=== PATIENT | female | born 1995 | race Caucasian/White ===

== ENCOUNTER → 2017-10-08 | Outpatient (CLI) | payer OTHER ==
[~2017-10-08] MED LIST: ACET325 PO; IBUP800 PO; Keflex500 MG PO; Norco 5-325 Ta1 EACH PO; QUET100 PO; Verotin-Gr Cap1 EACH PO
== END | disposition home or self-care (01) ==
LOC: LAB 11:21
PROVIDERS: Obstetrics & Gynecology
DX: K13.70 Unspecified lesions of oral mucosa (principal)
CPT/HCPCS: 87529

== ENCOUNTER → 2017-10-22 | Outpatient (CLI) | payer OTHER ==
[2017-10-22 18:19] LABS: Appearance, Urine Clear (Clear); Bilirubin, Urine Neg (Neg); Blood, Urine 2+ (Neg); Color, Urine Yellow (P-Yellow); Glucose Qualitative, Urine 3+ (Neg); Ketones, Urine 2+ (Neg); Leukocyte Esterase, Urine Neg (Neg); Nitrite, Urine Neg (Neg); Protein, Urine 3+ (Neg); Specific Gravity, Urine 1.015 (1.003-1.022); Urobilinogen, Urine NORM (Normal)
[2017-10-22 18:27] LABS: Bacteria Not Seen /hpf; Red Blood Cells, Urine 0-2 /hpf (0-2); Squamous Epithelial Cells Not Seen /hpf (Few); White Blood Cells, Urine Not Seen /hpf (0-5)
== END | disposition home or self-care (01) ==
LOC: LAB 12:08
PROVIDERS: Obstetrics & Gynecology
DX: R82.99 Other abnormal findings in urine (principal)
CPT/HCPCS: 81001

== ENCOUNTER → 2017-11-05 | Outpatient (CLI) | payer OTHER ==
[~2017-11-05] MED LIST changes: -ACET325 PO; -IBUP800 PO; -Verotin-Gr Cap1 EACH PO
[2017-11-05 11:49] LABS: Source, Urine Clean Catch
[2017-11-05 13:09] LABS: Appearance, Urine Clear (Clear); Bilirubin, Urine Neg (Neg); Blood, Urine 2+ (Neg); Color, Urine Yellow (P-Yellow); Glucose Qualitative, Urine Neg (Neg); Ketones, Urine Neg (Neg); Leukocyte Esterase, Urine 3+ (Neg); Nitrite, Urine Neg (Neg); Protein, Urine 2+ (Neg); Specific Gravity, Urine 1.015 (1.003-1.022); Urobilinogen, Urine NORM (Normal); pH, Urine 6.5 (5.0-8.0)
[2017-11-05 13:48] LABS: Bacteria Mod /hpf; Squamous Epithelial Cells Few /hpf (Few); White Blood Cells, Urine TNTC /hpf (0-5)
== END | disposition home or self-care (01) ==
LOC: LAB SHORT 11:26 → LAB 11:26
PROVIDERS: Obstetrics & Gynecology
DX: O99.89 Other specified diseases and conditions complicating pregnancy, childbirth and the puerperium (principal); R82.99 Other abnormal findings in urine
CPT/HCPCS: 81001; 87081; 87086; 87653

== ENCOUNTER → 2018-08-16 | Outpatient (CLI) | payer OTHER ==
[~2018-08-16] MED LIST changes: +ACET325 PO; +IBUP800 PO; +Verotin-Gr Cap1 EACH PO
== END | disposition home or self-care (01) ==
LOC: LAB SHORT 12:12 → LAB EV 12:12
DX: N39.0 Urinary tract infection, site not specified (principal)
CPT/HCPCS: 87077; 87086; 87186

== ENCOUNTER 2019-03-26 14:20 | Emergency (ER) | payer OTHER ==
[~2019-03-26] VITALS: Ht 162.6 cm; Wt 52.2 kg
[2019-03-26 15:43] LABS: BASOPHILS ABSOLUTE AUTO 0.03 K/mm3 (0.00-0.23); BASOPHILS PERCENT AUTO 1 % (0-2); EOSINOPHILS ABSOLUTE AUTO 0.03 K/mm3 (0.00-0.68); EOSINOPHILS PERCENT AUTO 1 % (0-6); Hematocrit 36.5 % (33.0-51.0); Hemoglobin 12.7 g/dL (11.5-16.0); IMMATURE GRAN ABSOLUTE AUTO 0.01 K/mm3 (0.00-0.10); IMMATURE GRAN PERCENT AUTO 0 % (0-1); LYMPHOCYTES ABSOLUTE AUTO 2.25 K/mm3 (0.84-5.20); LYMPHOCYTES PERCENT AUTO 51 % (21-46); MONOCYTES ABSOLUTE AUTO 0.15 K/mm3 (0.16-1.47); MONOCYTES PERCENT AUTO 3 % (4-13); Mean Corpuscular HGB 32.2 pg (26.0-34.0); Mean Corpuscular HGB Conc 34.8 g/dL (31.5-36.5); Mean Corpuscular Volume 92 fL (80-100); Mean Platelet Volume 9.2 fL (9.1-12.4); NEUTROPHILS ABSOLUTE AUTO 1.96 K/mm3 (1.96-9.15); NEUTROPHILS PERCENT AUTO 44 % (41-73); Platelet Count 162 K/mm3 (150-400); RDW Coefficient Variation 14.5 % (11.7-14.2); RDW Standard Deviation 48.4 fL (35.1-46.3); Red Blood Cell Count 3.95 M/mm3 (3.80-5.20); White Blood Cell Count 4.43 K/mm3 (4.00-11.30)
[2019-03-26 15:45] LABS: Source, Urine Clean Catch
[2019-03-26 15:49] LABS: Bilirubin, Urine Neg (Neg); Blood, Urine Neg (Neg); Glucose Qualitative, Urine 2+ (Neg); Ketones, Urine Neg (Neg); Leukocyte Esterase, Urine Neg (Neg); Nitrite, Urine Neg (Neg); Protein, Urine Neg (Neg); Urobilinogen, Urine NORM (Normal)
[2019-03-26 15:52] LABS: Appearance, Urine Clear (Clear); Color, Urine Yellow (P-Yellow)
[2019-03-26 16:05] LABS: Alanine Aminotransfer (ALT/SGP 19 U/L (12-78); Albumin, Blood 3.7 g/dL (3.4-5.0); Albumin/Globulin Ratio 1.1 (0.8-1.8); Alk Phos 44 U/L (50-136); Anion Gap 10 mmol/L (6-16); Aspartate Aminotrans (AST/SGOT 22 U/L (12-37); Bilirubin, Total 0.4 mg/dL (0.1-1.0); Blood Urea Nitrogen 11 mg/dL (8-24); Bun/Creatinine Ratio 22.1 (12.0-20.0); CO2, Blood 20 mmol/L (21-32); Calcium, Blood 8.5 mg/dL (8.5-10.1); Chloride, Blood 108 mmol/L (98-108); Globulin, Blood 3.5 g/dL (2.2-4.0); Glomerular Filtration Rate >60 (60-); Glucose, Blood 69 mg/dL (70-99); Potassium, Blood 3.7 mmol/L (3.5-5.5); Sodium, Blood 138 mmol/L (136-145); Total Protein, Blood 7.2 g/dL (6.4-8.2)
[2019-03-26 16:20] LABS: Beta HCG, Quantitative, Serum 53994 mIU/mL (0-3)
== END 2019-03-26 16:44 | disposition home or self-care (01) ==
LOC: ER 14:20
PROVIDERS: Physician Assistant
DX: O99.89 Other specified diseases and conditions complicating pregnancy, childbirth and the puerperium (principal); R10.9 Unspecified abdominal pain; Z3A.13 13 weeks gestation of pregnancy; V49.9XXA Car occupant (driver) (passenger) injured in unspecified traffic accident, initial encounter; Z88.2 Allergy status to sulfonamides; O99.341 Other mental disorders complicating pregnancy, first trimester; F31.9 Bipolar disorder, unspecified
CPT/HCPCS: 36415; 76801; 80053; 81003; 84702; 85025; 86900; 86901; 99284-25

== ENCOUNTER → 2019-06-05 | Outpatient (CLI) | payer OTHER | END | disposition home or self-care (01) | LOC: LAB SHORT 17:24 → LAB EV 17:24 | DX: B00.9 Herpesviral infection, unspecified (principal) | CPT/HCPCS: 87529 ==

== ENCOUNTER → 2019-09-09 | Outpatient (CLI) | payer OTHER | END | disposition home or self-care (01) | LOC: LAB SHORT 15:02 → LAB 15:02 | DX: Z34.93 Encounter for supervision of normal pregnancy, unspecified, third trimester (principal) | CPT/HCPCS: 87081; 87653 ==

== ENCOUNTER 2019-09-21 04:35 | Inpatient (IN) | payer OTHER ==
[~2019-09-21] VITALS: Ht 162.6 cm; Wt 65.9 kg
[2019-09-21 05:08] LABS: BASOPHILS ABSOLUTE AUTO 0.03 K/mm3 (0.00-0.23); BASOPHILS PERCENT AUTO 1 % (0-2); EOSINOPHILS ABSOLUTE AUTO 0.04 K/mm3 (0.00-0.68); EOSINOPHILS PERCENT AUTO 1 % (0-6); Hematocrit 35.3 % (33.0-51.0); Hemoglobin 11.6 g/dL (11.5-16.0); IMMATURE GRAN ABSOLUTE AUTO 0.02 K/mm3 (0.00-0.10); IMMATURE GRAN PERCENT AUTO 0 % (0-1); LYMPHOCYTES ABSOLUTE AUTO 2.43 K/mm3 (0.84-5.20); LYMPHOCYTES PERCENT AUTO 47 % (21-46); MONOCYTES ABSOLUTE AUTO 0.31 K/mm3 (0.16-1.47); MONOCYTES PERCENT AUTO 6 % (4-13); Mean Corpuscular HGB 28.1 pg (26.0-34.0); Mean Corpuscular HGB Conc 32.9 g/dL (31.5-36.5); Mean Corpuscular Volume 86 fL (80-100); Mean Platelet Volume 10.4 fL (9.1-12.4); NEUTROPHILS ABSOLUTE AUTO 2.39 K/mm3 (1.96-9.15); NEUTROPHILS PERCENT AUTO 46 % (41-73); Platelet Count 128 K/mm3 (150-400); RDW Coefficient Variation 13.4 % (11.7-14.2); RDW Standard Deviation 41.4 fL (35.1-46.3); Red Blood Cell Count 4.13 M/mm3 (3.80-5.20); White Blood Cell Count 5.22 K/mm3 (4.00-11.30)
[2019-09-22 05:57] LABS: BASOPHILS ABSOLUTE AUTO 0.01 K/mm3 (0.00-0.23); BASOPHILS PERCENT AUTO 0 % (0-2); EOSINOPHILS ABSOLUTE AUTO 0.01 K/mm3 (0.00-0.68); EOSINOPHILS PERCENT AUTO 0 % (0-6); Hematocrit 34.9 % (33.0-51.0); Hemoglobin 11.1 g/dL (11.5-16.0); IMMATURE GRAN ABSOLUTE AUTO 0.01 K/mm3 (0.00-0.10); IMMATURE GRAN PERCENT AUTO 0 % (0-1); LYMPHOCYTES ABSOLUTE AUTO 1.91 K/mm3 (0.84-5.20); LYMPHOCYTES PERCENT AUTO 26 % (21-46); MONOCYTES ABSOLUTE AUTO 0.34 K/mm3 (0.16-1.47); MONOCYTES PERCENT AUTO 5 % (4-13); Mean Corpuscular HGB 27.4 pg (26.0-34.0); Mean Corpuscular HGB Conc 31.8 g/dL (31.5-36.5); Mean Corpuscular Volume 86 fL (80-100); NEUTROPHILS ABSOLUTE AUTO 5.01 K/mm3 (1.96-9.15); NEUTROPHILS PERCENT AUTO 69 % (41-73); Platelet Count 108 K/mm3 (150-400); RDW Coefficient Variation 13.7 % (11.7-14.2); RDW Standard Deviation 42.2 fL (35.1-46.3); Red Blood Cell Count 4.05 M/mm3 (3.80-5.20); White Blood Cell Count 7.29 K/mm3 (4.00-11.30)
--- NOTE | 2019-09-22 08:09 | NUR ---
Assisted pt getting nb to breast. Will call when finished feeding for assessment.
[2019-09-22] MEDS ORDERED: ACET500 PO (12:16)
[2019-09-22] MEDS ORDERED: DOCU100 PO (12:17)
--- NOTE | 2019-09-22 16:35 | NUR ---
Printed d/c instructions and teaching reviewed w/pt and SO. Questions answered to her satisfaction. Denies other needs/concerns. No acute changes t/o shift. ID bands matched w/nb and verification form. PT d/c'd home ambulatory to care of SO.
== END 2019-09-22 16:35 | disposition home or self-care (01) | DRG 807 ==
LOC: OBS 04:35 → BC 04:35 → OBS 04:36 → BC 04:37
PROVIDERS: ADMIT Advanced Practice Midwife
PROC: 10E0XZZ Delivery of Products of Conception, External Approach (ICD-10-PCS; principal; 2019-09-21)
PROC: 0UQG7ZZ Repair Vagina, Via Natural or Artificial Opening (ICD-10-PCS; 2019-09-21)
PROC: 10907ZC Drainage of Amniotic Fluid, Therapeutic from Products of Conception, Via Natural or Artificial Opening (ICD-10-PCS; 2019-09-21)
PROC: 3E0R3BZ Introduction of Anesthetic Agent into Spinal Canal, Percutaneous Approach (ICD-10-PCS; 2019-09-21)
DX: O99.824 Streptococcus B carrier state complicating childbirth (principal); Z37.0 Single live birth; Z3A.38 38 weeks gestation of pregnancy; O71.4 Obstetric high vaginal laceration alone; O99.344 Other mental disorders complicating childbirth; F31.9 Bipolar disorder, unspecified; O99.02 Anemia complicating childbirth; O99.12 Other diseases of the blood and blood-forming organs and certain disorders involving the immune mechanism complicating childbirth; D69.6 Thrombocytopenia, unspecified; Z88.2 Allergy status to sulfonamides
CPT/HCPCS: 36415; 85025; 86850; 86900; 86901; A9270; J0290; J1885; J2001; J2405; J2590; J3010; J7120

== ENCOUNTER → 2020-01-31 | Outpatient (CLI) | payer OTHER ==
[~2020-01-31] MED LIST changes: +ACET500 PO; +DOCU100 PO
[2020-02-01 09:46] LABS: Candida species (DNA Probe) Positive (NEGATIVE); G. vaginalis (DNA Probe) Positive (NEGATIVE); T. vaginalis (DNA Probe) Negative (NEGATIVE)
== END | disposition home or self-care (01) ==
LOC: LAB 11:21 → LAB SHORT 11:21
PROVIDERS: Advanced Practice Midwife
DX: Z01.419 Encounter for gynecological examination (general) (routine) without abnormal findings (principal); N76.0 Acute vaginitis
CPT/HCPCS: 87480; 87510; 87624; 87625; 87660; G0123